=== PATIENT | female | born 1960 | race Two or more races ===

== ENCOUNTER 2024-07-11 05:07 | Day surgery (SDC) | payer OTHER ==
[~2024-07-11 05:07] MED LIST: GLIMEPIRIDE4 MG; LIPITOR40 M1 PO; SYNJARDY XR 121 EACH PO; VASOTEC20 M1 PO
[2024-07-11] MEDS ORDERED: LIDOCAINE HCL 1%/EPINEPHRINE 20ML VIAL IJ ONE (07:03)
[2024-07-11] MEDS ORDERED: BUPIVACAINE HCL/MPF 0.5% 30ML VIAL ONE (07:03)
[2024-07-11] MEDS ORDERED: CEFOXITIN SODIUM 2,000 MG VIAL IV ONE (07:03)
[2024-07-11] MEDS ORDERED: PERCOCET 5-3251 EACH PO (08:45)
[2024-07-11] MEDS ORDERED: DICY20TA PO (08:46)
[2024-07-11] MEDS ORDERED: ZOFRAN8 MG PO (08:46)
[2024-07-11] MEDS ORDERED: PEPCID AC20 MG PO (08:46)
[2024-07-11] MEDS ORDERED: MORPHINE SULFATE 4 MG/ML VIAL IV ONE ×2 (09:25→10:30)
== END 2024-07-11 11:20 | disposition home or self-care (01) ==
LOC: CIR.AMB 05:07
PROVIDERS: ATTEND Surgery
DX: K80.10 Calculus of gallbladder with chronic cholecystitis without obstruction (principal); I10 Essential (primary) hypertension; E11.9 Type 2 diabetes mellitus without complications